=== PATIENT | male | born 1990 | race Two or more races ===

== ENCOUNTER 2024-04-09 07:53 | Outpatient (REF) | payer OTHER, SELFPAY ==
[2024-04-09 09:18] LABS: MANUAL DIFF FLAG NO
[2024-04-09 10:08] LABS: Appearance Urine Clear; Color Urine Yellow; Glucose Urine UA Negative (Negative); Leukocyte Esterase Urine Negative (Negative); Nitrite Urine Negative (Negative); Specific Gravity - Urine 1.025 (1.005-1.025); Urine Blood Negative (Negative); Urine Ketones Negative (Negative); Urine Protein Negative (Neg-Trace)
[2024-04-09 10:22] LABS: Basophils Percent Auto 0.6 % (0-2); Eosinophils Absolute Auto 0.1 X10*3/uL (0.0-0.4); Eosinophils Percent Auto 2.4 % (0-4); Hematocrit 43.1 % (42.0-52.0); Hemoglobin 13.9 g/dl (14.0-18.0); Imm Gran Abs Auto 0.01 X10*3/uL (0.00-0.03); Imm Gran Pct Auto 0.2 % (0.0-0.4); Lymphocytes Absolute Auto 2.1 X10*3/uL (1.2-4.9); Lymphocytes Percent Auto 38.5 % (20-40); Mean Corpuscular HGB Conc 32.3 g/dl (31.0-36.0); Mean Corpuscular Hemoglobin 27.5 pg (27.0-33.0); Mean Corpuscular Volume 85.3 fL (80.0-98.0); Mean Platelet Volume 10.9 fL (9.4-12.4); Monocytes Absolute Auto 0.4 X10*3/uL (0.1-1.2); Monocytes Percent Auto 6.9 % (2-11); Neutrophils Absolute Auto 2.8 x10*3/uL (2.0-8.3); Neutrophils Percent Auto 51.4 % (45-73); Platelet Count 231 X10*3/uL (160-400); Red Blood Count 5.05 X10*6/uL (4.60-5.80); Red Cell Distribution Width 13.1 % (11.0-16.0); White Blood Count 5.4 X10*3/uL (4.8-10.8)
[2024-04-09 11:25] LABS: Alanine Aminotransferase 19 U/L (0-40); Albumin Level 4.4 g/dL (3.5-5.0); Alkaline Phosphatase 76 U/L (39-117); Anion Gap 11 (12-20); Aspartate Amino Transferase 21 U/L (5-37); Bilirubin Total 0.7 mg/dL (0.0-1.0); Blood Urea Nitrogen 9 mg/dL (9-16); Calcium 9.8 mg/dL (8.4-10.2); Carbon Dioxide 28 mmol/L (22-29); Chloride 106 mmol/L (96-108); Estimated Glomerular Filt Rate > 60; Glucose Random 90 mg/dL (60-115); Potassium 4.2 mmol/L (3.3-5.1); Sodium 141 mmol/L (135-145); Total Protein 7.4 g/dL (6.5-8.0)
[2024-04-09 11:43] LABS: TSH reflex Free T4 0.83 uIU/mL (0.32-4.0)
[2024-04-09 11:44] LABS: Syphilis Screen Nonreactive (Nonreactive)
[2024-04-09 11:47] LABS: HBS Num1 21.19 mIU/mL (0-7.99); HBc Num1 0.11 S/CO (0.00-0.79); HBsAGNum1 0.38 S/CO (0.00-0.99); HIV AB/AG Nonreactive (Nonreactive); HIV Num 1 0.08 S/CO (0.00-0.99); Hepatitis B Core Antibody Nonreactive (Nonreactive); Hepatitis B Surface Antigen Negative (Negative); ~Hepatitis B Surface Antibody REACTIVE (Nonreactive); ~Hepatitis C Antibody Nonreactive (Nonreactive)
[2024-04-09 11:51] LABS: Folate 5.7 ng/mL (> or = 4.0); Vitamin B12 359 pg/mL (200-900)
[2024-04-14 16:17] LABS: Vitamin D 25-OH, D2 <4 ng/mL; Vitamin D 25-OH, D3 23 ng/mL; Vitamin D 25-OH, Total 23 ng/mL (30-100)
== END 2024-04-09 07:54 | disposition home or self-care (01) ==
LOC: HO.LAB 07:53
DX: Z00.00 Encounter for general adult medical examination without abnormal findings (principal); Z11.3 Encounter for screening for infections with a predominantly sexual mode of transmission; R35.89 Other polyuria; H54.7 Unspecified visual loss
CPT/HCPCS: 36415; 80053; 81003; 82306; 82607; 82746; 84439; 84443; 85025; 86704; 86706; 86780; 86803; 87340; 87389; 96127; 99202

== ENCOUNTER 2024-04-09 07:53 | Outpatient (AMB) | payer OTHER, SELFPAY ==
[2024-04-09 07:59] VITALS: BP 100/58; PULSE 76; O2SAT 97; BMI 23.0
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
== END 2024-04-09 08:36 | disposition home or self-care (01) ==
LOC: HO.HMCH 07:54
DX: M25.561 Pain in right knee (principal); H54.7 Unspecified visual loss; Z11.3 Encounter for screening for infections with a predominantly sexual mode of transmission

== ENCOUNTER 2024-05-08 15:00 | Outpatient (REF) | payer OTHER, SELFPAY ==
[2024-05-09 06:11] LABS: CT PCR NOT DETECTED (Not Detect.); NG PCR NOT DETECTED (Not Detect.)
== END 2024-05-08 15:01 | disposition home or self-care (01) ==
LOC: HO.LAB 15:00
DX: Z00.00 Encounter for general adult medical examination without abnormal findings (principal); Z23 Encounter for immunization; L81.9 Disorder of pigmentation, unspecified; F17.210 Nicotine dependence, cigarettes, uncomplicated
CPT/HCPCS: 87491; 87591; 90471; 90715; 96127; 99395

== ENCOUNTER 2024-05-08 15:00 | Outpatient (AMB) | payer OTHER, SELFPAY ==
[2024-05-08 15:10] VITALS: BP 118/68; PULSE 72; O2SAT 99; BMI 23.7
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
== END 2024-05-08 15:51 | disposition home or self-care (01) ==
DX: Z00.00 Encounter for general adult medical examination without abnormal findings (principal); L81.9 Disorder of pigmentation, unspecified; Z23 Encounter for immunization

== ENCOUNTER 2024-07-05 09:49 | Outpatient (AMB) | payer OTHER, SELFPAY ==
--- NOTE | 2024-07-05 09:51 | A.OFFVIS_ITS ---
Intake Visit Reasons: hypopigmentation of penis Intake Note: Patient is present for HYPOPIGMENTATION OF PENIS Urology Medication:NONE Antibiotic Allergy:NONE Blood Thinner:NONE Machine Featheredger And Reducer Required: No Allergies No Known Allergies Allergy (Verified 07/05/24 09:52) HPI Comments Details: Elmer is a very pleasant male. He is a patient of . He is seen for the following urologic conditions - pigmentation condition of penis skin Pigmentation conditioned of penile shaft Progressive Failed to respond to topical antifungal Occurs in small circular spots with red scaling at edge Trial oral fluconazole If unsuccessful require penile biopsy PFSH Family History Mother No problems noted. Father No problems noted. Maternal Grandmother Leukemia Social History Housing: Apartment Patient Tobacco Use Status: Current everyday Tobacco user Tobacco use type: Cigarette Cigarettes Per Day: 2 e-Cigarette/Vaping Use: Never Used Second Hand Smoke Exposure: Yes service: No Current occupational status: employed Cognitive needs: No Hearing needs: No Vision needs: Yes Review of Systems Const Denies chills and Denies fever(s) Card Reports no additional complaints and Denies syncope Resp Denies cough GI Denies abdominal pain and Denies heartburn Reports as per HPI and Denies change in libido Neuro Denies syncope Psych Denies change in libido Endo Denies change in libido Physical Exam Const General: cooperative, healthy appearing, comfortable and no acute distress Orientation/consciousness: patient oriented x3 HEENT Face and sinus: Yes normal facial exam Mouth: moist mucous membranes Neck Neck: Yes normal visual inspection, Yes full ROM and Yes trachea midline Chest Chest palpation & inspection: normal inspection of the chest Resp Effort & Inspection: normal respiratory effort, able to speak in complete sentences and no respiratory distress GI Inspection: Yes normal to inspection Back/Spine/Pelvis Cervical Spine: normal cervical lordosis Thoracic/Lumbar Spine: thoracic and lumbar spine normal to inspection Skin General skin exam: no rashes or lesions noted Neuro General: patient oriented x3, gait normal, tone normal and moves all extremities Extrem General: Yes normal to inspection and Yes capillary refill normal Assessment & Plan Assessment & Plan (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 No major barriers to patient understanding were identified. An opportunity to ask questions regarding the treatment plan was provided. All questions were answered. The patient expressed understanding and agreement with the above treatment plan. The patient is aware they should contact our office by phone for worsening of their current condition or the appearance of new urologic symptoms. Compliance is encouraged with any medications and followup testing that is ordered. It is a privilege to participate in the urologic care of your patient. If you have any questions or concerns regarding treatment for the above conditions, or other urologic issues, please do not hesitate to contact me. The office telephone contact is [phone]. This note is constructed using voice recognition software. While every effort has been made to ensure accuracy restaurant busser errors may have been included. Yours sincerely, Dr Bj Syed MD, [facility] - Urology Providers of Expert, Compassionate Care for the Genitourinary System Coding Level of Care Code New Pt Level 4 (74929) Diagnoses Penile anomaly Q55.69
--- OUTSIDE RECORDS SUMMARY | 2024-07-05 10:28 | XMS_ITS | Clinical Summary ---
Author Organization [employer] Address [address] [place] [address] Care Team Providers Care Conference Service Coordinator Name Role Phone Unavailable Primary Care Provider Unavailabl e Encounters Date Type Department Care Team Description 04/26/2024 Telephone [facility] [address] [place] [address] Galen Adame MD New Patient appt. from Last 3 Months Social History Tobacco Use Types Packs/Day Years Used Date Smoking Tobacco: Never Assessed Sex and Gender Information Value Date Recorded Sex Assigned at Not on file Legal Sex Male 10:24 AM EDT Gender Identity Not on file Sexual Orientation Not on file Plan of Treatment Health Maintenance Due Date Last Done Comments Depression Screening 1990 HIV Screening 1990 SDOH Screening 1990 Alcohol/Substance Use Screening 2002 Tobacco Screening 2002 Family Planning (PISQ) 2005 Hepatitis C Screening 2008 DTaP/Tdap/Td Vaccines (1 - Tdap) 2009 Hepatitis B Vaccines (1 of 3 - 19+ 3-dose series) 2009 COVID-19 Vaccine ( - 2023-2 5 season) 2024 Influenza Vaccine (#1) 2024 Zoster Vaccines (1 of 2) 2040 RSV Patients and Pa tients Aged 60 years or older (1 - 1-dose 75+ series) 2065 HIB Vaccines Aged Out No longer eligi ble based on patient's age to complete this topic HPV Vaccines Aged Out No longer eligi ble based on patient's age to complete this topic Hepatitis A Vaccines Aged Out No long er eligible based on patient's age to complete this topic IPV Vaccines Aged Out No longer eligi ble based on patient's age to complete this topic Meningococcal Vaccine Aged Out No laura ab eligible based on patient's age to complete this topic Pneumococcal Vaccine: Pediat rics (0 to 5 Years) and At-Risk Patients (6 to 49) Years) Aged Out No longer eligible b ased on patient's age to complete this topic RSV under 20 months Aged Out No longe r eligible based on patient's age to complete this topic Rotavirus Vaccines Aged Out No longer eligible based on patient's age to complete this topic Insurance [facility] C3
== END 2024-07-05 10:25 | disposition home or self-care (01) ==
PROVIDERS: Visit Provider Urology
DX: Q55.69 Other congenital malformation of penis (principal)
CPT/HCPCS: 99204

== ENCOUNTER → 2024-07-05 09:49 | Outpatient (BNVA) | payer OTHER, SELFPAY | PROVIDERS: Visit Provider Urology | DX: Q55.69 Other congenital malformation of penis (principal) | CPT/HCPCS: 99202 ==

== ENCOUNTER 2024-08-21 09:04 | Outpatient (AMB) | payer OTHER, SELFPAY ==
--- NOTE | 2024-08-21 09:13 | A.OFFVIS_ITS ---
Intake Visit Reasons: 6w/Penile biopsy Intake Note: Patient is present for 6W/PENILE BIOPSY Urology Medication:NONE Antibiotic Allergy:NONE Blood Thinner:NONE Staff Submarine Warfare Officer Required: No Allergies No Known Allergies Allergy (Verified 08/21/24 09:14) HPI Comments Details: Elmer is a very pleasant male. He is a patient of . He is seen for the following urologic conditions - pigmentation condition of penis skin Continued fragmentation of penile shaft skin Failed to respond to oral fluconazole Punch biopsy performed 2 week follow-up Pigmentation conditioned of penile shaft Progressive Failed to respond to topical antifungal Occurs in small circular spots with red scaling at edge Trial oral fluconazole - unsuccessful PFSH Family History Mother No problems noted. Father No problems noted. Maternal Grandmother Leukemia Social History Housing: Apartment Patient Tobacco Use Status: Current everyday Tobacco user Tobacco use type: Cigarette Cigarettes Per Day: 2 e-Cigarette/Vaping Use: Never Used Second Hand Smoke Exposure: Yes service: No Current occupational status: employed Cognitive needs: No Hearing needs: No Vision needs: Yes Office Procedures Excision Details: Punch biopsy penis Hyperpigmented skin 5 mm punch biopsy Infiltrate local anesthetic Punch biopsy performed in Lluvia's line Three interrupted chromic sutures used to close 61276-[id number] scalp/neck/feet/hands/genitalia <.05cm Procedure code (CPT) selection complete Office Meds lidocaine 1 %-epinephrine 1:100,000 injection solution Performing Provider: Bj Syed MD [facility] Documented (not given) by: Bj Syed MD on 08/21/24 09:56 Dose Route Admin Location Dispensed Lot Number Expiration Date NDC Director Of Strategic Partnerships 0.5 mL Infiltration mL Assessment & Plan Assessment & Plan (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 While every effort has been made to ensure accuracy roller painter errors may have been included. Imaging studies, laboratory and physical exam results were discussed and reviewed in detail. No major barriers to patient understanding were identified. An opportunity to ask questions regarding the treatment plan was provided. All questions were answered. The patient expressed understanding and agreement with the above treatment plan. The patient is aware they should contact our office by phone for worsening of their current condition or the appearance of new urologic symptoms. Compliance is encouraged with any medications and followup testing that is ordered. It is a privilege to participate in the urologic care of your patient. If you have any questions or concerns regarding treatment for the above conditions, or other urologic issues, please do not hesitate to contact me. The office telephone contact is [phone]. Sincerely, Dr Bj Syed MD, [facility] - Urology Compassionate Specialist Care for the Genitourinary System Coding Level of Care Code Est Pt Level 3 (14100) Procedure Only Diagnoses Penile anomaly Q55.69 CPT Codes Scalp/Neck/Hands/Feet/Genetalia - CPT: 71162-Pwyosphn scalp/neck/feet/hands/genitalia <.05cm ([id number])
== END 2024-08-21 10:00 | disposition home or self-care (01) ==
LOC: HO.HUSH 09:05
PROVIDERS: Visit Provider Urology
DX: N48.89 Other specified disorders of penis (principal); Q55.69 Other congenital malformation of penis
CPT/HCPCS: 11104; 99213

== ENCOUNTER 2024-08-21 09:04 | Outpatient (REF) | payer OTHER, SELFPAY | END 2024-08-21 09:05 | disposition home or self-care (01) | LOC: HO.LNP 09:04 | PROVIDERS: Visit Provider Urology | DX: L81.9 Disorder of pigmentation, unspecified (principal); Q55.69 Other congenital malformation of penis | CPT/HCPCS: 11104; 88304; 88305; 88312; 99212 ==

== ENCOUNTER 2024-09-04 11:12 | Outpatient (AMB) | payer OTHER, SELFPAY ==
--- NOTE | 2024-09-04 11:13 | A.OFFVIS_ITS ---
Intake Visit Reasons: 2 week follow up Intake Note: Patient is present for 2W F/U Urology Medication:NONE Antibiotic Allergy:NONE Blood Thinner:NONE Hair Worker Required: No Allergies No Known Allergies Allergy (Verified 09/04/24 11:14) HPI Comments Details: Elmer is a very pleasant male. He is a patient of . He is seen for the following urologic conditions - pigmentation condition of penis skin Telemedicine Evaluation 15 min Consultation [employer] [place] Video Biopsy - Spongiotic skin with marked dermal chronic inflammation - recommend to treat with 1 month topical corticosteroid plus moisturizer Pigmentation conditioned of penile shaft Progressive Failed to respond to topical antifungal Occurs in small circular spots with red scaling at edge PFS Family History Mother No problems noted. Father No problems noted. Maternal Grandmother Leukemia Social History Housing: Apartment Patient Tobacco Use Status: Current everyday Tobacco user Tobacco use type: Cigarette Cigarettes Per Day: 2 e-Cigarette/Vaping Use: Never Used Second Hand Smoke Exposure: Yes service: No Current occupational status: employed Cognitive needs: No Hearing needs: No Vision needs: Yes Review of Systems Const All systems reviewed & are unremarkable except as noted in HPI and below Reports no additional complaints Resp Reports no additional complaints GI Reports no additional complaints Reports as per HPI Musc Reports no additional complaints Physical Exam Telemedicine evaluation Appropriate responses Regular breathing rate and rhythm HEENT Head: Yes normal to inspection Ears: hearing grossly normal bilaterally Eyes General: appearance normal, both eyes and all related structures Neck Neck: Yes normal visual inspection Chest Chest palpation & inspection: normal inspection of the chest Resp Effort & Inspection: normal respiratory effort and able to speak in complete sentences Telehealth Telehealth Telehealth Platform: [employer] Location of provider rendering services: practice address Location of patient: address on file Patient Identification confirmed using: Name, : Yes Telehealth method: video Patient verbally consented to treatment: Yes Patient verbally consented to billing insurance company: Yes Patient informed of any privacy concerns related to visit: Yes Minutes spent on Phone/Video with Pt.: 15 Assessment & Plan Assessment & Plan (1) 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 While every effort has been made to ensure accuracy commercial electrician errors may have been included. Imaging studies, laboratory and physical exam results were discussed and reviewed in detail. No major barriers to patient understanding were identified. An opportunity to ask questions regarding the treatment plan was provided. All questions were answered. The patient expressed understanding and agreement with the above treatment plan. The patient is aware they should contact our office by phone for worsening of their current condition or the appearance of new urologic symptoms. Compliance is encouraged with any medications and followup testing that is ordered. It is a privilege to participate in the urologic care of your patient. If you have any questions or concerns regarding treatment for the above conditions, or other urologic issues, please do not hesitate to contact me. The office telephone contact is [phone]. Sincerely, Dr Bj Syed MD, [facility] - Urology Compassionate Specialist Care for the Genitourinary System Coding Level of Care Code Tele Est Pt Level 4 (96889) Diagnoses Spongiotic dermatitis L30.8
--- OUTSIDE RECORDS SUMMARY | 2024-09-04 13:37 | XMS_ITS | Clinical Summary ---
Author Organization [employer] Address [address] [place] [address] Care Team Providers Care Customer Advocate Name Role Phone Unavailable Primary Care Provider Unavailabl e Social History Tobacco Use Types Packs/Day Years Used Date Smoking Tobacco: Never Assessed Sex and Gender Information Value Date Recorded Sex Assigned at Male 08/28/2024 10:58 AM EDT Legal Sex Male 10:24 AM EDT Gender Identity I'm not sure/ don't know my gender identity 08/28/2024 10:58 AM EDT Sexual Orientation Straight 08/28/2024 10 :58 AM EDT Plan of Treatment Health Maintenance Due Date [...] patient's age to complete this topic Insurance [facility] C3
== END 2024-09-04 11:59 | disposition home or self-care (01) ==
LOC: HO.HUSH 11:12
PROVIDERS: Visit Provider Urology
DX: L30.8 Other specified dermatitis (principal)
CPT/HCPCS: 99214

== ENCOUNTER → 2024-09-04 11:12 | Outpatient (BNVA) | payer OTHER, SELFPAY | PROVIDERS: Visit Provider Urology ==

== ENCOUNTER 2025-05-14 14:42 | Outpatient (AMB) | payer OTHER, SELFPAY ==
--- NOTE | 2025-05-14 14:47 | MHC.PC.OV ---
Vital Signs 05/14/25 14:49 Height 6 ft 3 in Weight 202 lb 2 oz BMI 25.3 BP 122/60 Blood Pressure Location Lt brachial Position Sitting Respiration 18 Pulse 73 Pulse Source Pulse Oximeter Temp Source Temporal Artery Scan Pulse Oximetry (%) 95 Oxygen Delivery Method Room Air Intake Visit Reasons: annual exam PHQ-9 needed. Asic Verification Engineer Required: No Accompanied by: Self / Same As Patient Allergies No Known Allergies Allergy (Verified 05/14/25 15:14) Medication List - Last Reconciled 05/14/25 by Mayra Charles PA-C No Known Home Meds Tobacco use date assessed: 05/14/25 Dental Screening Dental Screen Date: 05/14/25 Did you have a dental visit in the last 12 months?: Yes Did you have a dental problem in the last 6 months where you did not have access to dental care?: No Was dental information given to patient?: Patient has dentist HPI annual exam PHQ-9 needed. HPI Details 34 year old male with no relevant past medical history last seen 05/2024 coming in for annual exam. In review of the notes, patient was seen by Urology 09/2024 for pigmentation of the penis and recommended 1 month topical CS with moisturizer. Presenting for an annual exam with a chief complaint of a morning cough with occasional hemoptysis. He reports a daily morning cough that resolves throughout the day, which has been present for a few months. He has experienced intermittent episodes of coughing up blood, which started about two months ago, with the last episode occurring over a month ago. The cough is non-productive of phlegm. 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 He continues to smoke and has no immediate interest in quitting. Past attempts to quit using patches were unsuccessful as he would forget to use them. He is not interested in nicotine gum or medication for smoking cessation. He has a history of anxiety but declines counseling or medication, stating he prefers to manage it himself and is concerned about medication side effects impacting his work. vaccines: UTD declines flu eye doctor: yearly [facility] Family History Mother No problems noted. Father No problems noted. Maternal Grandmother Leukemia Social History Housing: Apartment Patient Tobacco Use Status: Current everyday Tobacco user Tobacco use type: Cigarette Cigarettes Per Day: 2 e-Cigarette/Vaping Use: Never Used Second Hand Smoke Exposure: Yes service: No Current occupational status: employed Cognitive needs: No Hearing needs: No Vision needs: Yes Questionnaire PHQ-9 Over the last 2 weeks, how often have you been bothered by any of the following problems? 1. Little interest or pleasure in doing things: not at all 2. Feeling down, depressed, or hopeless: not at all 3. Trouble falling or staying asleep, or sleeping too much: not at all 4. Feeling tired or having little energy: not at all 5. Poor appetite or overeating: not at all 6. Feeling bad about yourself - or that you are a failure or have let yourself or your family down: not at all 7. Trouble concentrating on things, such as reading the newspaper or watching television: not at all 8. Moving or speaking so slowly that other people could have noticed. Or the opposite - being so fidgety or restless that you have been moving around a lot more than usual: not at all 9. Thoughts that you would be better off or of hurting yourself in some way: not at all Total score: 0 Depression Screening Interpretation: Negative Depression Screening Done: Yes Source: Developed by Drs. Jovan Peterson, Lisa Burkett, Amadeo Martínez and colleagues, with an educational martin from [employer]. Thrive Questionnaire Date Thrive assessed: 05/14/25 I am a: Patient What is your living situation today?: I choose not to answer this question Within the past 12 months, did the food you bought not last and you didn't have the money to get more?: I choose not to answer this question Within the past 12 months, did you worry whether your food would run out before you got money to buy more?: I choose not to answer this question Do you have trouble paying for medicines?: I choose not to answer this question Do you have trouble getting transportation to medical appointments?: I choose not to answer this question Do you have trouble paying your heating and electricity bill?: I choose not to answer this question Do you have trouble taking care of your child, family member or friend?: I choose not to answer this question Do you have trouble with day-to-day activities such as bathing, preparing meals, shopping, managing finances, etc.?: I choose not to answer this question Are you currently unemployed and looking for a job?: I choose not to answer this question Are you interested in more education?: I choose not to answer this question Please select the resources that you would like help with: None Currently or been in a relationship where the following occur: I choose not to answer THRIVE Score: 0 AUDIT C Alcohol Use Questionnaire (AUDIT-C) 1. How often do you have a drink containing alcohol?: Never Total Score: 0 SAMANTHA-7 AMB Questionnaire SAMANTHA-7 Date SAMANTHA - 7 assessed: 05/14/25 Feeling nervous, anxious, or on edge: 0 = Not at all Not being able to stop or control worryin = Not at all Worrying too much about different things: 0 = Not at all Trouble relaxin = Not at all Being so restless that it is hard to sit still: 0 = Not at all Becoming easily annoyed or irritable: 0 = Not at all Feeling afraid as if something awful might happen: 0 = Not at all Total SAMANTHA-7 score (0-4 normal; 5-9 mild; 10-14 moderate; 15-21 severe): 0 Source: Developed by Drs. Jovan Peterson, Lisa Burkett, Amadeo Martínez and colleagues, with an educational martin from [employer]. Review of Systems Const Denies body aches, Denies chills, Denies fever(s), Denies headache(s) and Denies poor appetite Eyes Reports no additional complaints ENT Denies dysphagia, Denies dizziness, Denies headache(s) and Denies odynophagia Card Denies chest pain, Denies syncope, Denies edema, Denies irregular heart rhythm, Denies lightheadedness and Denies dyspnea Resp Reports cough, Reports hemoptysis and Denies dyspnea GI Denies abdominal pain, Denies constipation, Denies dysphagia, Denies diarrhea, Denies nausea, Denies odynophagia and Denies vomiting Reports no additional complaints Musc Reports no additional complaints and Denies abnormal gait Skin/Breast Reports system reviewed and no additional complaints, except as documented Neuro Denies abnormal gait, Denies dizziness, Denies syncope and Denies headache(s) Psych Reports no additional complaints Physical exam (Primary Care) Vital Signs: Last Vital Signs Pulse 73 05/14/25 14:49 Resp 18 05/14/25 14:49 BP 122/60 05/14/25 14:49 Pulse Ox 95 05/14/25 14:49 Oxygen Delivery Method Room Air 05/14/25 14:49 BMI result Body Mass Index 25.3 Tobacco/Smoking Status: Tobacco use Status Tobacco use date assessed 05/14/25 05/14/25 14:58 Patient Tobacco Use Status Current everyday Tobacco 05/14/25 14:58 Tobacco use type Cigarette 05/14/25 14:58 e-Cigarette/Vaping Use Never Used 05/14/25 14:58 PHQ-9: PHQ-9 Score PHQ-9: Total score 0 05/14/25 15:16 Depression Screening Interpretation: Negative Thrive Assessment: Date of Thrive Assessment Date Thrive assessed 05/14/25 05/14/25 14:58 Currently or been in a relationship where the following occur: I choose not to answer Const General: cooperative, healthy appearing, comfortable and no acute distress Orientation/consciousness: patient oriented x3 HENMT Head: Yes normocephalic Ears: hearing grossly normal bilaterally General nose exam: Normal external nose present Eyes General: appearance normal, both eyes and all related structures Conjunctivae: conjunctivae normal Neck Neck: Yes full ROM and Yes no lymphadenopathy Resp Effort & Inspection: normal respiratory effort Auscultation: clear to auscultation bilaterally, no crackles, no rales, no rhonchi and no wheezes Cardio Rate: regular rate Rhythm: regular rhythm Skin General skin exam: no rashes or lesions noted Neuro General: patient oriented x3 Gait exam (Neuro): Normal gait present Extrem General: Yes normal to inspection, Yes full ROM and No edema Psych Affect: normal affect Attitude: cooperative Insight: Good insight present (Psych) Judgement: Good judgement present (Psych) Coding Level of Care Code Est Pt Prev Care [id number]([id number]) Diagnoses Annual physical exam Z00.00 Spongiotic dermatitis L30.8 Cough R05.9 Tobacco use disorder F17.200 Assessment & Plan Assessment & Plan (1) Annual physical exam: Code(s): Z00.00 - Encounter for general adult medical examination without abnormal findings Category: Medical Plan: Patient is up to date on all recommended screenings for his age. I ordered for updated blood work for patient to be completed. Tetanus shot updated today follow up in 1 year or sooner if new problems arise (2) Spongiotic dermatitis: Code(s): L30.8 - Other specified dermatitis Category: Medical Plan: Continue to follow with Urology as needed (3) Cough: Code(s): R05.9 - Cough, unspecified Category: Medical Plan: The patient reports a morning cough with episodes of hemoptysis that started about two months ago. Differential diagnoses include irritation from dry air, acid reflux, and allergies. Patient is declining chest x-ray otherwise strongly encouraged having this completed. Patient agrees he will think about having this completed and was informed the orders will be in the lab for him. Asthma testing via a pulmonary function test was offered but the patient deferred. Patienr declined chest XR and is strongly encouraged to have this completed. He is declining acid reflux medication or allergy medication at this time. Discussed dietary and lifestyle modification for acid reflux to prevent morning cough. Did discuss the possibility of cancerous process given hemoptysis however patient is declining workup at this time. I did review red flag symptoms with the patient and when to present for re-evaluation. Recommended a follow up however patient would like to follow up at his yearly exam. (4) Tobacco use disorder: Code(s): F17.200 - Nicotine dependence, unspecified, uncomplicated Category: Medical Plan: Smoking cigarettes and the use of tobacco can be harmful. We discussed the importance of stopping and options to aid in smoking cessation. Declining nicotine replacement therapy or medication at this time Plan This note was constructed using voice recognition software. While every effort has been made to ensure accuracy and computer networking instructor, still areas may have been included sometimes these areas may affect the content or meeting of the given symptoms. Total time spent caring for the patient today was 30 minutes. This includes time spent before the visit reviewing the chart, time spent during the visit, and time spent after the visit and documentation. Orders: Orders Lipid Panel Today Z13.220 - Encounter for screening for lipoid disorders Complete Blood Count Auto Diff Today Z13.0 - Encounter for screening for diseases of the blood and blood-forming organs and certain disorders involving the immune mechanism XR chest 2V Today R05.9 - Cough, unspecified TSH reflex Free T4 Today Z13.29 - Encounter for screening for other suspected endocrine disorder Vitamin B12 and Folate Today Z13.21 - Encounter for screening for nutritional disorder Vitamin D 25-OH Total Today Z13.21 - Encounter for screening for nutritional disorder Comprehensive Met. Panel Today Z00.00 - Encounter for general adult medical examination without abnormal findings
[2025-05-14 14:49] VITALS: BP 122/60; PULSE 73; RESP 18; O2SAT 95; BMI 25.3
--- OUTSIDE RECORDS SUMMARY | 2025-05-14 23:04 | XMS_ITS | Clinical Summary ---
Author Organization [employer] Address [address] [place] [address] Care Team Providers Care Lei Maker Name Role Phone Unavailable Primary Care Provider [...] 1990 HIV Screening 1990 SDOH Screening 1990 Disability Screening 1990 Alcohol/Substance Use Screening 2002 Tobacco Screening 2002 Family Planning (PISQ) 2005 HPV Vaccines (1 - 3-dose series) 2005 Hepatitis C Screening 2008 Hepatitis B Vaccines (1 of 3 - 19+ 3-dose series) 2009 COVID-19 Vaccine ( - 2024-2 6 season) 2025 Influenza Vaccine (#1) 2025 DTaP/Tdap/Td Vaccines (2 - T d or Tdap) 05/08/2034 05/08/2024 Zoster Vaccines (1 of 2) 2040 RSV [...] patient's age to complete this topic Meningococcal B Vaccine Aged Out No l onger eligible based on patient's age to complete this topic Meningococcal Vaccine Aged Out No laura ab eligible based on patient's age to complete this topic Pneumococcal Vaccine: Pediat rics (0 to 5 Years) and At-Risk Patients (6 to 49) Years Aged Out No longer eligi ble based on patient's age to complete this topic RSV under 20 months Aged Out No longe r eligible based on patient's age to complete this topic Rotavirus Vaccines Aged Out No longer eligible based on patient's age to complete this topic Insurance [facility]
== END 2025-05-14 15:42 | disposition home or self-care (01) ==
DX: Z00.00 Encounter for general adult medical examination without abnormal findings (principal); L30.8 Other specified dermatitis; R05.9 Cough, unspecified; F17.200 Nicotine dependence, unspecified, uncomplicated

== ENCOUNTER → 2025-05-14 14:42 | Outpatient (BNVA) | payer OTHER, SELFPAY | DX: Z00.00 Encounter for general adult medical examination without abnormal findings (principal); L30.8 Other specified dermatitis; F17.200 Nicotine dependence, unspecified, uncomplicated; R05.9 Cough, unspecified; Z13.31 Encounter for screening for depression; Z13.39 Encounter for screening examination for other mental health and behavioral disorders | CPT/HCPCS: 96127; 99395 ==